=== PATIENT | male | born 1980 | race African-American/Black ===

== ENCOUNTER 2020-07-23 21:43 | Emergency (ER) | payer OTHER ==
[~2020-07-23] VITALS: Ht 170.2 cm; Wt 104.6 kg
[2020-07-23 23:22] VITALS: BP 143/73
--- NOTE | 2020-07-23 23:38 | REPVR ---
PROCEDURE INFORMATION: Exam: XR Left Knee Exam date and time: 07/23/2020 10:27 PM Age: 40 years old Clinical indication: Pain; Knee; Left; Additional info: Trauma TECHNIQUE: Imaging protocol: XR Left knee. Views: 4 or more views. COMPARISON: No relevant prior studies available. FINDINGS: Bones/joints: Minimal degenerative spurring. No fractures or dislocation. Question tiny lateral compartment joint body. Soft tissues: Normal. IMPRESSION: No acute findings. Electronically signed by: Venkat Estrada On 07/23/2020 23:38:30 PM
== END 2020-07-23 23:31 | disposition home or self-care (01) ==
LOC: M ED 21:43
DX: S80.912A Unspecified superficial injury of left knee, initial encounter (principal); V58.4XXA Person boarding or alighting a pick-up truck or van injured in noncollision transport accident, initial encounter; Y99.1 Military activity; Y92.9 Unspecified place or not applicable